=== PATIENT | male | born 1980 | race Caucasian/White ===

== ENCOUNTER 2020-04-16 13:18 | Emergency (ER) | payer OTHER, SELFPAY ==
[2020-04-16 13:30] VITALS: BP 125/86; PULSE 80; RESP 18; TEMP 36.5; O2SAT 98
--- NOTE | 2020-04-16 13:40 | ED.SKABFB ---
HPI - Skin/Abscess/Foreign Bdy General Chief complaint: Skin/Abscess/Foreign Body Stated complaint: lump on right butt cheek Time Seen by Provider: 04/16/20 13:49 Source: patient History of Present Illness HPI narrative: patient presents with a tender and swollen area to right buttock. patient states he has had a similar incident in the past on the left side that was relieved with antibiotic. Related Data Allergies Allergy/AdvReac Type Severity Reaction Status Date / Time No Known Allergies Allergy Verified 04/16/20 13:41 Review of Systems Review of Systems: Narrative: CONSTITUTIONAL: Denies fever, chills, or sweats. EYES: Denies visual changes, redness, or discharge. ENT: Denies rhinorrhea, congestion, sore throat, or otalgia. CARDIOVASCULAR: Denies chest pain, palpitations, or edema. RESPIRATORY: Denies cough or dyspnea. GASTROINTESTINAL: Denies abdominal pain, nausea, vomiting, or diarrhea. GENITOURINARY: Denies dysuria or hematuria. SKIN: Denies rash or itching. MUSCULOSKELETAL: Denies back pain, joint pain, or myalgia. NEUROLOGIC: Denies headache, numbness, or weakness. PSYCHIATRIC: Denies anxiety or depression. [facility] Family History Family History (Updated 04/02/14 @ 07:13 by DOCTOR UNKNOWN) Grandparent Asthma Family history of emphysema Acute myocardial infarction Social History Social History Alcohol intake: current Comments At time of signature, agree with nursing past medical, surgical, social and family history. There is no relevant family history pertinent to the presenting complaint Exam Narrative: Exam Narrative: GENERAL: Well-appearing, well-nourished, and in no acute distress. HEAD: Normocephalic, atraumatic. EYES: PERRLA and EOMI. ENT: Nares clear, no rhinorrhea or epistaxis. Mucous membranes moist. NECK: Supple. CHEST: Clear to auscultation. No respiratory distress. HEART: Regular rate and rhythm. No murmur heard. Normal peripheral pulses. ABDOMEN: Soft, nontender, nondistended, normal active bowel sounds. EXTREMITIES: Normal range of motion. No edema. SKIN: Warm, dry, no rash. 7inch by 8 inch abscess to right buttocks no fluctuance no induration no indication for an I & D NEURO: No focal deficits. Alert and oriented x3. Rafael Coma Scale Eye Opening: Spontaneous 4 Rafael Coma Scale Motor: Obeys Commands 6 Rafael Coma Scale Verbal: Oriented 5 Rafael Coma Scale Total 15 Course Vital Signs Vital signs: Vital Signs Temperature 36.5 C 04/16/20 13:30 Pulse Rate 80 04/16/20 13:30 Respiratory Rate 18 04/16/20 13:30 Blood Pressure 125/86 04/16/20 13:30 Pulse Oximetry 98 04/16/20 13:30 Temperature 36.5 C 04/16/20 13:30 Pulse Rate 80 04/16/20 13:30 Respiratory Rate 18 04/16/20 13:30 Blood Pressure 125/86 04/16/20 13:30 Pulse Oximetry 98 04/16/20 13:30 MDM - Skin/Abscess/Foreign Bdy Differential Diagnosis Differential diagnosis: Likely abscess of skin or subcutaneous tissue, viral exanthem, dermatophytosis, urticaria, herpes zoster, allergic reaction to drug, cellulitis, eczema, insect bites, impetigo and contact dermatitis Critical Care Time Critical Care Time Critical Care Time: No Discharge Plan Discharge Clinical Impression: Abscess of skin or subcutaneous tissue, Cellulitis Patient Disposition: Home, Self-Care Condition: Stable Instructions: Antibiotic Form, Abscess (ED) Additional Instructions: Warm compresses to the area 20-30 minutes 4-6 times a day and as needed elevate the area if possible antibiotic as directed--finish the medicine tylenol/ibuprofen for pain -the maximum dose of Tylenol is 4000 mg in 24 hours. watch for increasing infection--redness, swelling, drainage if the wound was packed--remove the packing in 2 days follow up with PCP in 2-4 days for a wound check recheck if develop fever, chills, increasing symptoms -If you have any worsening of symptoms or any other concerns please go to the ED immed
== END 2020-04-16 13:52 | disposition home or self-care (01) ==
PROVIDERS: Emergency Provider Nurse Practitioner Family
DX: L02.31 Cutaneous abscess of buttock (principal); L03.317 Cellulitis of buttock
CPT/HCPCS: 99213; G0463